=== PATIENT | male | born 1960 | race Caucasian/White ===

== ENCOUNTER → 2023-09-27 06:25 | Day surgery (SDC) | payer OTHER, SELFPAY | LOC: GI 06:25 | PROVIDERS: ATTENDING PHYSICIAN Internal Medicine | DX: Z12.11 Encounter for screening for malignant neoplasm of colon (principal); K64.8 Other hemorrhoids; K57.30 Diverticulosis of large intestine without perforation or abscess without bleeding; K58.9 Irritable bowel syndrome, unspecified; K63.5 Polyp of colon; D12.2 Benign neoplasm of ascending colon; Z80.0 Family history of malignant neoplasm of digestive organs | CPT/HCPCS: 45385; 88305 ==

== ENCOUNTER 2024-01-25 06:30 | Day surgery (SDC) | payer OTHER, SELFPAY | END 2024-01-25 14:44 | disposition home or self-care (01) | LOC: GI 06:30 | PROVIDERS: ATTENDING PHYSICIAN Internal Medicine | DX: K44.9 Diaphragmatic hernia without obstruction or gangrene (principal); R13.10 Dysphagia, unspecified; K22.89 Other specified disease of esophagus; K31.89 Other diseases of stomach and duodenum; Z13.810 Encounter for screening for upper gastrointestinal disorder | CPT/HCPCS: 43239; 88305; 88342 ==

== ENCOUNTER 2024-04-17 06:13 | Day surgery (SDC) | payer OTHER, SELFPAY ==
[2024-04-17 09:15] VITALS: BMI 31.7
[2024-04-17 09:16] VITALS: BMI 31.7
[2024-04-17 09:17] VITALS: BP 147/89
[2024-04-17 12:05] VITALS: BP 131/79
[2024-04-17 12:15] VITALS: BP 133/86
[2024-04-17 12:30] VITALS: BP 152/95
== END 2024-04-17 12:42 | disposition home or self-care (01) ==
LOC: SDS 06:13
PROVIDERS: ATTENDING PHYSICIAN Internal Medicine Gastroenterology
DX: K22.81 Esophageal polyp (principal)
CPT/HCPCS: 43251; 88305

== ENCOUNTER 2024-05-26 16:21 | Inpatient (IN) | payer OTHER, MEDICARE, SELFPAY ==
[2024-05-26] VITALS (10 sets, daily range): BP systolic 132–161; BP diastolic 78–92; BMI 32.4
--- NOTE | 2024-05-26 13:01 | W.PN.CARDCBS ---
Today's Communication / Plan
-
[facility] today
monitor creat post dye load
get Echo report from [facility]
followup w/Dr. Loving at d/c
Impression / Plan
-
This is the H&P summary.
Full H&P scanned into chart.
PCP: Eric Klein MD
CDY: Chris Loving MD
HPI: 63 y/o, PMH sig for HTN, HLD, CKD3a, BPH, Anxiety. Sig FH CAD in father, uncles.
Presented to [facility] 05/24 with new acute chest and back pain, radiating to LUE, relieved with SL NTG and aspirin given in the ED. EKG with inferior TWI. Troponin HS peak 1518, corresponding CK/MB 596/48.8. Started on IV heparin and has been pain free.
He endorses recent 40lb weight loss with Wegovy. Prelim echo 05/26 with preserved LVSF with inferolateral HK.
Transferred today for [facility]
IMPRESSION:
NSTEMI
HTN
HLD
CKD3a
BPH
Obesity with recent weight loss d/t GLP-1
Anxiety
PLAN:
[facility] today
ASA 324mg in ER and 81/daily, and clopidogrel 600mg x1 on 05/25 in ER only, no further clopidogrel ordered
started isordil 10 TID but having headaches so would likely d/c after cath
monitor BP- taking amlodipine 2.5/daily- increased to 5mg/daily at [facility]- will need BB, NORMA/ARB post cath
Check lipid profile- taking atorvastatin 40/d
Creat baseline 1.5-1.6/GFR 50s- monitor post dye load
cardiac rehab
Followup w/Dr. Loving at d/c
Progress Note - Appraiser
Subjective
Date of Service: May 26, 2024
[2024-05-26] MEDS: NSS 334 ML IV (13:41)
[2024-05-26 15:17] LABS: ACT-LR - POC 284 Seconds (116-155)
[2024-05-26 15:26] LABS: ACT-LR - POC 83 Seconds (116-155)
[2024-05-26 15:32] LABS: ACT-LR - POC 343 Seconds (116-155)
[2024-05-26 15:52] LABS: ACT-LR - POC 300 Seconds (116-155)
--- NOTE | 2024-05-26 16:36 | ITS.CL.CATH ---
Senior Speech Pathologist - Catheterization
Cardiac Catheterization
Procedure Report:
LEFT HEART CATH AND CORONARY INTERVENTION
Date of Procedure: May 26, 2024
Referring: Dr. Chris Loving
PROCEDURES:
1. Left heart catheterization with coronary and single-plane left ventriculography
2. Successful stenting of the proximal LAD with a 4.0 x 26 mm Mauricio stent that was implanted at nominal pressures and postdilated to 20 michael with a 4.0 mm noncompliant balloon
INDICATION: This is a 63-year-old gentleman with a past medical history notable for hyperlipidemia who was admitted to [facility] following the onset of substernal chest pressure. He subsequently ruled in for non-ST segment elevation
myocardial infarction with his troponin peaking at 15.2 ng/mL. He is received in transfer for coronary angiography.
ACCESS: Right radial artery, 6 Montenegrin sheath. A prominent vascular loop is noted in the right forearm and he experienced severe discomfort while manipulating any wires through this area. Radial access was abandoned in favor of right common femoral
access using ultrasound guidance and a micropuncture technique with placement of a 6 Montenegrin sheath
HEMODYNAMICS (mmHg):
AO (s/d, m) : 142/75, 97
LV (s/d) : 146/12
LVEDP : 30
CORONARY FINDINGS
Dominance: Right
LEFT MAIN: Normal
LEFT ANTERIOR DESCENDING: The LAD arises normally from the left main and runs in the anterior interventricular groove. The LAD is quite tortuous throughout its course and diffuse noncritical luminal irregularities to 30% are noted in the proximal
and mid LAD. The distal vessel terminates just before it wraps around the apex.
RAMUS: The ramus intermedius is a moderate to large caliber vessel that is extremely tortuous in its midportion. There is a proximal 20% stenosis.
CIRCUMFLEX: The circumflex is a medium caliber nondominant vessel. OM1 arises very proximally and is a medium caliber vessel that is widely patent. The circumflex terminates in a small OM 2
RIGHT CORONARY: The right coronary artery is a very large caliber dominant vessel with a 95% proximal stenosis just beyond a proximal RV marginal branch. The mid right coronary artery remains a large-caliber vessel and bifurcates into a moderate
caliber PDA and moderate to large caliber posterolateral branch. The posterolateral branch has a long proximal 50% stenosis and thrombus is noted in the distal vessel with TOM II flow noted into a small terminal posterolateral branch.
VENTRICULOGRAPHY: Left ventriculography is performed in an NIELSON projection. The digital single-plane left ventricular ejection fraction is visually estimated at 50% with mild anterolateral and focal diaphragmatic inferior hypokinesis noted.
ANGIOPLASTY PROCEDURE DETAIL: Upon review of the diagnostic catheterization films the decision was made to proceed with percutaneous revascularization of the high-grade proximal RCA stenosis. The patient received a 600 mg loading dose of
clopidogrel as he had received a loading dose of clopidogrel on 05/24/2024 when he presented to [facility] emergency department. He received no clopidogrel on 05/29 and is reloaded prior to the interventional procedure on 05/26/2024.
Intravenous heparin was administered and the ACT was monitored throughout the procedure.
The origin of the right coronary artery was originally cannulated with a 6 Montenegrin merit JR4 guiding catheter, however, the catheter kinked while torquing it towards the right coronary ostium and was removed. A 6 Montenegrin JR4 Cordis guide catheter was
then advanced to the RCA and cannulated the origin of the RCA without significant difficulty. Immediately upon cannulation of the right coronary artery the patient developed marked ST elevation in leads II, III, and aVF with sluggish flow distally.
A BMW guidewire was quickly advanced through the 6 Montenegrin RCA guide catheter and across the proximal RCA stenosis and into the distal vessel. Balloon predilation was performed using a 2.0 x 15 mm compliant balloon. We attempted to advance a 4.0 x
26 mm Mauricio stent over the guidewire, however, could not cross the residual stenotic segment in the RCA. The stent was removed and a GuideLiner was advanced over the guidewire and into the proximal RCA where pressure dampening was noted as a guide
catheter engaged the stenotic segment of the RCA. With a little luck and persistence of a 4.0 x 26 mm Fall [place] stent across the stenotic segment in the RCA and was advanced to the distal vessel and was slowly withdrawn. When appropriate positioning
was confirmed the guide liner was retracted to the guide catheter and the stent was deployed at 12 michael. A residual dog bone resolved at peak balloon inflation. A 4.0 x 8 mm noncompliant balloon was advanced to the distal portion of the stent and
the balloon was inflated to 16-18 michael. Serial balloon inflations were performed to 20 michael in the mid to proximal portion of the stent and the 4.0 x 8 mm stent could clearly now be advanced easily across the entire stented segment. Angiography
revealed that the distal posterolateral branch was occluded, however, this was felt to be a very distal segment supplying a limited myocardium and no additional balloon inflations were performed.
SEDATION: 79 minutes of procedural sedation was utilized. An independent forensic medical examiner was present to assist with and help manage the patient's level of consciousness and physiologic status
CLOSURE DEVICE: 6 Montenegrin Angio-Seal RFA and TR band right radial artery
RADIATION SUMMARY: Fluoro Time (min): 17.4, Dose (mGy): 1207, DAP (Gy.cm2) : 89.7
CONCLUSIONS
1. Successful stenting of the proximal right coronary artery with a 4.0 x 26 mm Mauircio stent that was implanted at nominal pressures and postdilated to 20 michael with a 4.0 mm noncompliant balloon
2. Low normal LVEF estimated at 50% with anterolateral hypokinesis and diaphragmatic inferior hypokinesis
RECOMMENDATIONS
1. Uninterrupted dual antiplatelet therapy for 12 months
2. Will increase atorvastatin from 40 mg daily to 80 mg daily
3. Continue amlodipine 5 mg daily and add carvedilol 6.25 mg p.o. twice daily and lisinopril 5 mg daily. Needs aggressive blood pressure control for goal of less than 130/80
4. Follow-up should be arranged with Dr. Chris Loving
Copy to: Dr. Chris Loving
[2024-05-26] MEDS: NSS 1000 IV (17:22)
[2024-05-26] MEDS: LIPITOR 40 MG PO (17:33)
[2024-05-26] MEDS: TYLENOL 650 MG PO ×2 (17:35→22:30)
--- NOTE | 2024-05-26 17:47 | PTCARENOTE ---
Pt received post procedure awake, alert and oriented. Right rad site WNL with band intact. Right groin dressing dry and intact, site soft and slightly tender. Room air 98%. Bedrest maintained. Voided 200ml clear yulissa urine.
[2024-05-26] MEDS: COREG 6.25 MG PO (19:21)
[2024-05-26] MEDS: COLACE 100 MG PO (20:00)
[2024-05-26] MEDS: ZYRTEC 10 MG PO (20:00)
[2024-05-26] MEDS: OCEAN, SALINE MIST 1 SPRAYS NASAL (20:08)
[2024-05-26] MEDS: ATIVAN 0.5 MG PO (22:30)
--- NOTE | 2024-05-26 22:43 | PTCARENOTE ---
Assumed care of patient at change of shift w/ at bedside. Patient AAOx3, tele monitor shows SR, and sating 97-98% RA. TR band removed at 20:00 w/out difficulty, dry dressing applied. Patient educated on activity restrictions, and verbalized
understanding. CAD packet given. Right groin site C/D/I w/ positive b/l DP pulses. Patient ambulates self in room w/out difficulty, and denies any dizziness. Patient denies any chest discomfort, but does c/o headache pain. Patient reports the
headache pain is r/t to sinus congestion. Dr. Yury Elizondo made aware and orders obtained/ carried out for STAT 10mg of Zyrtec and administered PRN nasal spray. Patient reports last BM was on 05/22, Colace administered-see APR for further details.
POC ongoing, call bailey within reach.
[2024-05-27 04:10] VITALS: BP 130/92
[2024-05-27 04:54] LABS: Hematocrit 34.2 % (39.0-52.0); Hemoglobin 11.7 g/dL (13.0-18.0); Mean Corp Hgb Conc. 34.2 g/dL (33.0-37.0); Mean Corpuscular Hgb 28.7 pg (27.0-31.0); Mean Platelet Volume 9.8 fL (7.4-10.4); Platelet Count 174 10^3/uL (130-400); Red Blood Cell Count 4.07 10^6/uL (4.70-6.10); Red Cell Dist. Width 12.8 % (11.5-14.5); White Blood Cell Count 6.2 10^3/uL (4.8-10.8)
[2024-05-27 05:12] LABS: Blood Urea Nitrogen 11 mg/dl (9-20); Calcium 8.9 mg/dl (8.4-10.2); Carbon Dioxide 24 mmol/L (22-30); Chloride 107 mmol/L (98-107); Estimated Creatinine Clearance 80 ml/min; Glucose 100 mg/dl (70-99); HDL Cholesterol 38 mg/dl; LDL Cholesterol, Calculated 69 mg/dl; Sodium 140 mmol/L (135-145); Total Cholesterol 129 mg/dl (50-199); Triglyceride 113 mg/dl (10-149); Very Low Density Lipoprotein 22 mg/dl (0-30); eGFR > 60.00
[2024-05-27 07:28] VITALS: BP 137/78
[2024-05-27] MEDS: COREG 6.25 MG PO (07:51)
[2024-05-27] MEDS: COLACE 100 MG PO (07:51)
[2024-05-27] MEDS: PLAVIX 75 MG PO (07:52)
[2024-05-27] MEDS: ZYRTEC 10 MG PO (07:52)
[2024-05-27] MEDS: PROZAC 20 MG PO (07:52)
[2024-05-27] MEDS: LOW STRENGTH ASPIRIN 81 MG PO (07:52)
[2024-05-27] MEDS: NORVASC 5 MG PO (07:52)
[2024-05-27] MEDS: ZESTRIL 5 MG PO (07:52)
--- NOTE | 2024-05-27 08:47 | W.PN.CARDCBS ---
Addendum entered and electronically signed by Yury Costa MD 05/27/24 09:52:
Attending addendum: Patient seen and examined. ANALYST BUSINESS ANALYSIS note reviewed and findings independently confirmed by me. I met with Mr. Bai and his .
He is stable for discharge and will followup with Dr. Loving. He was scheduled for an appointment late in June but ATC / Dr. Loving are working on an appointment sooner
Discussed the need to remain compliant with dual antiplatelet therapy
Added GI prophylaxis
Needs aggressive blood pressure control with goal < 130/80
Original Note:
Today's Communication / Plan
-
cardiac rehab
home today
Impression / Plan
-
PCP: Eric Klein MD
CDY: Chris Loving MD
HPI: 63 y/o, PMH sig for HTN, HLD, CKD3a, BPH, Anxiety. Sig FH CAD in father, uncles.
Presented to [facility] 05/24 with new acute chest and back pain, radiating to LUE, relieved with SL NTG and aspirin given in the ED. EKG with inferior TWI. Troponin HS peak 1518, corresponding CK/MB 596/48.8. Started on IV heparin and has been pain free.
He endorses recent 40lb weight loss with Wegovy. Prelim echo 05/26 with preserved LVSF with inferolateral HK. Transferred for [facility].
C 05/26- 95% prox RCA, s/p angioplasty/DALIA x1, transient ST elevation II, III, aVF immediately after cannulation that improved after wire crossed lesion
residual CAD- 30% prox-mid LAD, 20% prox Ramus, 50% prox PLB
LVG- EF 50%, mild anterolat and focal diaphragmatic inferior HK
IMPRESSION:
NSTEMI
s/p prox RCA PCI
Residual CAD for medical management
HTN
HLD
CKD3a
BPH
Obesity with recent weight loss d/t GLP-1
Anxiety
PLAN:
Tele- NSR 60-80s, NSVT/AIVR immediately post cath, none overnight
Radial and femoral cath sites stable
DAPT w/asa, plavix for 12months uninterrupted
Tolerating new start carvedilol 6.25 BID, lisinopril 5/d, increased amlodipine to 5/d- improved BP 130s-150s
Lipid profile noted- increase atorvastatin to 80/d
Creat stable post dye load
cardiac rehab consult
Followup w/Dr. Loving at d/c
Progress Note - Academic Registrar
Subjective
Date of Service: May 27, 2024
Denies cp/palps/dyspnea
oob ambulating
cath sites without pain
Objective
Labs:
05/27/24 04:17
05/27/24 04:17
Labs
Hgb 11.7 g/dL (13.0-18.0) L 05/27/24 04:17
Hct 34.2 % (39.0-52.0) L 05/27/24 04:17
Plt Count 174 10^3/uL (130-400) 05/27/24 04:17
Sodium 140 mmol/L (135-145) 05/27/24 04:17
Potassium 4.0 mmol/L (3.5-5.1) 05/27/24 04:17
BUN 11 mg/dl (9-20) 05/27/24 04:17
Creatinine 1.2 mg/dL (0.7-1.3) 05/27/24 04:17
Glucose 100 mg/dl (70-99) H 05/27/24 04:17
Vital Signs and I&O:
Vital Signs
Temp Pulse Resp BP Pulse Ox
98.4 F 79 18 137/78 96
05/27/24 07:25 05/27/24 08:00 05/27/24 07:25 05/27/24 07:28 05/27/24 07:25
Vital Signs
Temp Pulse Resp BP Pulse Ox
98.4 F 79 18 137/78 96
05/27/24 07:25 05/27/24 08:00 05/27/24 07:25 05/27/24 07:28 05/27/24 07:25
Intake & Output
05/25/24 05/26/24 05/27/24 05/28/24
06:59 06:59 06:59 06:59
Intake Total 1409 / 1409
Balance 1409 / 1409
Physical Exam
Physical Exam
AAOx3, MAEE 5/5
RRR S1 S2 no murmurs
CTA bilat, non labored
soft abd, + bs
right radial and right femoral cath sites both CSR RETAIL, no ht/bleeding, groin mildly tender, no bruit
BLE with palpable distal pulses, no edema
--- NOTE | 2024-05-27 10:20 | PTCARENOTE ---
Assumed care at 0700. Patient denies pain, NSR. VSS, right radial and right femoral sites CDI. Patient walking in halls today
[2024-05-27] MEDS: PROTONIX 40 MG PO (10:25)
--- NOTE | 2024-05-27 10:29 | W.DS.TRANS ---
DC Summary - Financial Institution Manager
-
Discharge Instructions:
Discharge Diagnosis/Procedures NSTEMI, s/p angioplasty and stent to Right
Coronary artery
Diet Low Cholesterol
Activity No strenuous activity
Additional Activity For 1 week
Driving Restrictions No driving for 24 hours
Other Services Cardiac Rehab
Instructions:
Stand-Alone Forms: DC Instructions- Cath/EP Lab
Changes to Home Medications: Yes
Discharge Medications:
DC Medications w/original date entered in [facility] - It's what's in store
azelastine 205.5 mcg (0.15 %) nasal spray (Astepro Allergy) 1 spray intranasal DAILY 04/17/24
cetirizine 10 mg tablet (Zyrtec) 10 mg PO DAILY allergies 04/17/24
fluoxetine 20 mg tablet 20 mg PO DAILY 04/17/24
polyethylene glycol 3350 17 gram oral powder packet (Miralax) 17 g PO DAILYPRN PRN constipation 04/17/24
cyanocobalamin (vitamin B-12) 2,000 mcg tablet,extended release (Vitamin B-12 ER) 2,000 mcg PO DAILY 05/26/24
multivitamin 1 tab PO DAILY 05/26/24
semaglutide (weight loss) 2.4 mg/0.75 mL subcutaneous pen injector (Wegovy) 2.4 mg SC MO 05/26/24
amlodipine 5 mg tablet 5 mg PO DAILY #30 tabs 05/27/24
aspirin 81 mg chewable tablet 81 mg PO DAILY #0 tabs 05/27/24
atorvastatin 40 mg tablet 80 mg (2 x 40 mg) PO QPM #60 tabs 05/27/24
carvedilol 6.25 mg tablet 6.25 mg PO BID #60 tabs 05/27/24
clopidogrel 75 mg tablet 75 mg PO DAILY #30 tabs 05/27/24
lisinopril 10 mg tablet 10 mg PO DAILY #30 tabs 05/27/24
pantoprazole 40 mg tablet,delayed release 40 mg PO DAILY #30 tabs 05/27/24
Home Medication Changes
NEW: pantoprazole, lisinopril, clopidogrel, carvedilol, aspirin
DOSE INCREASE: atorvastatin, amlodipine
Pending Results: No
--- NOTE | 2024-05-27 10:43 | CM ---
Reviewed chart. Met with Mr Bai to review discharge plans. He states he is feeling well and maybe able to go home soon. He states prior to admission he resides with his spouse and daughter in a two story townhouse with two steps to enter. He
states he has a full flight of steps to get to bedroom/full bathroom. He states he has a powder room on the first floor. He states prior to admission he was independent with ambulation and adls. He states he has a CPAP Machine at home and no other
DME in the home. He states he has a prescription plan and uses [facility]. Medical work-up in progress. The discharge plan is to return home with his spouse and daughter when medically stable.
[2024-05-27 11:06] VITALS: BP 123/85
--- NOTE | 2024-05-27 11:16 | PTCARENOTE ---
Patient discharged to home. Teaching completed, patient verbalized understanding. Escorted to main lobby in a wheelchair.
== END 2024-05-27 11:23 | disposition home or self-care (01) | DRG 322 ==
LOC: IVU 16:21
PROVIDERS: Nurse Practitioner; ADMITTING PHYSICIAN Internal Medicine Interventional Cardiology
PROC: 4A023N7 Measurement of Cardiac Sampling and Pressure, Left Heart, Percutaneous Approach (ICD-10-PCS; 2024-05-26)
PROC: 027034Z Dilation of Coronary Artery, One Artery with Drug-eluting Intraluminal Device, Percutaneous Approach (ICD-10-PCS; 2024-05-26)
PROC: B2151ZZ Fluoroscopy of Left Heart using Low Osmolar Contrast (ICD-10-PCS; 2024-05-26)
PROC: B2111ZZ Fluoroscopy of Multiple Coronary Arteries using Low Osmolar Contrast (ICD-10-PCS; 2024-05-26)
DX: I21.4 Non-ST elevation (NSTEMI) myocardial infarction (principal); I12.9 Hypertensive chronic kidney disease with stage 1 through stage 4 chronic kidney disease, or unspecified chronic kidney disease; N18.31 Chronic kidney disease, stage 3a; E78.5 Hyperlipidemia, unspecified; F41.9 Anxiety disorder, unspecified; I25.10 Atherosclerotic heart disease of native coronary artery without angina pectoris; E66.9 Obesity, unspecified; Z68.32 Body mass index [BMI] 32.0-32.9, adult; N40.0 Benign prostatic hyperplasia without lower urinary tract symptoms; Z82.49 Family history of ischemic heart disease and other diseases of the circulatory system
CPT/HCPCS: 80048; 80061; 85027; 85347; 93005; 93458; 99152; 99153; C1725; C1760; C1769; C1874; C1887; C1894; C9600; Q9967

== ENCOUNTER → 2024-09-16 13:03 | Outpatient (REF) | payer OTHER, SELFPAY | LOC: HWRAD 13:03 | PROVIDERS: ATTENDING PHYSICIAN Internal Medicine Interventional Cardiology; FAMILY PHYSICIAN Family Medicine | DX: Z95.5 Presence of coronary angioplasty implant and graft (principal); Z82.49 Family history of ischemic heart disease and other diseases of the circulatory system | CPT/HCPCS: 71250 ==

== ENCOUNTER → 2024-10-07 09:12 | Outpatient (REF) | payer OTHER, SELFPAY | LOC: RCS 09:12 | PROVIDERS: ATTENDING PHYSICIAN Internal Medicine Interventional Cardiology; FAMILY PHYSICIAN Family Medicine | DX: Z95.5 Presence of coronary angioplasty implant and graft (principal); I25.2 Old myocardial infarction; I25.10 Atherosclerotic heart disease of native coronary artery without angina pectoris; I10 Essential (primary) hypertension | CPT/HCPCS: 93306 ==